=== PATIENT | male | born 1960 | race American Indian/Alaskan Native ===

== ENCOUNTER 2018-06-24 08:39 | Emergency (ER) | payer SELFPAY ==
[2018-06-24 09:06] VITALS: BP 142/86
--- NOTE | 2018-06-24 09:56 | Emergency Department Report ---
ED Upper Extremity Inj HPI - General Chief Complaint: Shoulder Injury Stated Complaint: RIGHT SHOULDER PAIN Time Seen by Provider: 06/24/18 09:38 Source: patient Mode of arrival: Ambulatory Limitations: Physical Limitation - History of Present Illness Initial Comments: 58-year-old male with pain to right shoulder 2 months. Patient states pain is worse with abduction of the right arm and also laying on right shoulder. Patient denies numbness or tingling in the extremity. 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 Patient denies any serious injury to the shoulder other than bumping it into something Complaint: Injury to:: right, shoulder -: Gradual, month(s) Other Injuries: none Handedness: left Improves With: immobilization Context: other (unknown) Associated Symptoms: denies: numbness, neck pain, heard/felt popping sensat - Related Data Previous Rx's Medication Instructions Recorded Last Taken Type Methocarbamol [Robaxin-750] 750 mg PO Q6HR PRN #20 tablet 06/24/18 Unknown Rx Naproxen [Naprosyn] 500 mg PO BID #20 tablet 06/24/18 Unknown Rx Allergies Allergy/AdvReac Type Severity Reaction Status Date / Time No Known Allergies Allergy Unverified 06/24/18 09:06 ED Review of Systems ROS: Stated complaint: RIGHT SHOULDER PAIN Other details as noted in HPI Comment: All other systems reviewed and negative Musculoskeletal: arthralgia Skin: denies: rash, lesions Neurological: denies: weakness, numbness, paresthesias ED Past Medical Hx - Past Medical History Previous Medical History?: No - Surgical History Past Surgical History?: No - Social History Smoking Status: Current Every Day Smoker Substance Use Type: Alcohol - Medications Home Medications: Home Medications Medication Instructions Recorded Confirmed Last Taken Type Methocarbamol [Robaxin-750] 750 mg PO Q6HR PRN #20 tablet 06/24/18 Unknown Rx Naproxen [Naprosyn] 500 mg PO BID #20 tablet 06/24/18 Unknown Rx ED Physical Exam - General Limitations: Physical Limitation General appearance: alert, in no apparent distress - Head Head exam: Present: atraumatic, normocephalic - Eye Eye exam: Present: normal appearance - ENT ENT exam: Present: mucous membranes moist - Neck Neck exam: Present: normal inspection, full ROM. Absent: tenderness - Respiratory Respiratory exam: Present: normal lung sounds bilaterally. Absent: respiratory distress - Cardiovascular Cardiovascular Exam: Present: regular rate, normal rhythm - GI/Abdominal GI/Abdominal exam: Present: soft. Absent: tenderness - Extremities Exam Extremities exam: Present: normal capillary refill, other (no deformities or swelling present; decreased ROM in right shoulder; pain with passive abduction present; strength and sensation nml; cardiology associate strength nml) - Neurological Exam Neurological exam: Present: alert, oriented X3, motor sensory deficit - Psychiatric Psychiatric exam: Present: normal affect, normal mood - Skin Skin exam: Present: warm, dry, intact, normal color. Absent: rash ED Course Vital Signs 06/24/18 09:00 Temperature 98.7 F Pulse Rate 69 Respiratory 16 Rate Blood Pressure 142/86 O2 Sat by Pulse 98 Oximetry ED Medical Decision Making - Medical Decision Making 58 yo M w/ likely rotator cuff tendinitis w/ impingement. Advised ortho follow- up. Will prescribe anti-inflammatory and muscle relaxer. - Differential Diagnosis tendinitis, fracture, dislocation Critical care attestation.: If time is entered above; I have spent that time in minutes in the direct care of this critically ill patient, excluding procedure time. ED Disposition Clinical Impression: Right rotator cuff tendinitis Disposition: DC-01 TO HOME OR SELFCARE Is pt being admited?: No Condition: Stable Instructions: Rotator Cuff Tendinitis (ED) Prescriptions: Methocarbamol [Robaxin-750] 750 mg PO Q6HR PRN #20 tablet PRN Reason: Spasms Naproxen [Naprosyn] 500 mg PO BID #20 tablet Referrals: [facility] [Provider Group] - 3-5 Days NICOLÁS GAGE MD [Staff Physician] - 3-5 Days Time of Disposition: 10:04
== END 2018-06-24 10:15 | disposition home or self-care (01) ==
LOC: ED 08:39
DX: M75.101 Unspecified rotator cuff tear or rupture of right shoulder, not specified as traumatic (principal); F17.200 Nicotine dependence, unspecified, uncomplicated
CPT/HCPCS: 99282

== ENCOUNTER 2018-07-01 12:08 | Emergency (ER) | payer OTHER ==
[2018-07-01 12:27] VITALS: BP 149/93
[2018-07-01] MEDS ORDERED: ZOFRAN IM ONE (13:46)
[2018-07-01] MEDS ORDERED: MOTRIN PO ONE (13:46)
[2018-07-01] MEDS ORDERED: SUBLIMAZE IM ONE (13:46)
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
[2018-07-01] MEDS ORDERED: ZOFRAN ODT PO ONE (14:28)
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
== END 2018-07-01 14:42 | disposition home or self-care (01) ==
LOC: ED 12:08
DX: M25.511 Pain in right shoulder (principal); F17.200 Nicotine dependence, unspecified, uncomplicated
CPT/HCPCS: 73030; 96372; 99283; J2405; J3010; Q0162

== ENCOUNTER 2019-01-10 18:35 | Emergency (ER) | payer SELFPAY ==
--- NOTE | 2019-01-10 19:17 | Emergency Department Report ---
Chief Complaint: Shoulder Injury Stated Complaint: LEFT SHOULDER PAIN Time Seen by Provider: 01/10/19 19:14 - HPI History of Present Illness: pt presents with L shoulder pain that 2 months ago no fall, injury, or trauma pt was given a muscle relaxer and something for pain by his orthopedic pt is currently seeing an orthopedic doctor in [place] no PMHx VSS MSE screening note: Focused history and physical exam performed. ED Disposition for MSE Condition: Stable
[2019-01-10 19:21] VITALS: BP 116/75
== END 2019-01-10 21:50 | disposition left against medical advice (07) ==
LOC: ED 18:35
DX: M25.512 Pain in left shoulder (principal); Z53.21 Procedure and treatment not carried out due to patient leaving prior to being seen by health care provider